=== PATIENT | female | born 2000 ===

== ENCOUNTER 2024-08-21 00:03 | Inpatient (IN) | payer BC ==
[2024-08-21] MEDS ORDERED: Sodium Chloride 0.9% 2.5 ML Syringe FLUSH PRN (00:21)
[2024-08-21] MEDS ORDERED: Misoprostol 200 MCG Tab PO PRN (00:21)
[2024-08-21] MEDS ORDERED: Methylergonovine 0.2 MG/1 ML Amp IM PRN (00:21)
[2024-08-21] MEDS ORDERED: Lidocaine 1% 50 ML MDV INJECT PRN (00:21)
[2024-08-21] MEDS ORDERED: Ondansetron 4 MG/2 ML SDV IVPUSH PRN (00:21)
[2024-08-21] MEDS ORDERED: Carboprost Tromethamine 250 MCG/1 mL Vial IM PRN (00:21)
[2024-08-21] MEDS ORDERED: Terbutaline 1 MG/ML SDV SUBCUT PRN (00:21)
[2024-08-21] MEDS ORDERED: Water For Irrigation,Sterile 1,000 ML Container IRR PRN (00:21)
[2024-08-21] MEDS ORDERED: Sodium Chloride 0.9% 20 ML SDV IV PRN (00:21)
[2024-08-21] MEDS ORDERED: Sodium Chloride 0.9% 10 ML Syringe FLUSH PRN (00:21)
[2024-08-21] MEDS ORDERED: Oxytocin/0.9 % Sodium Chloride 30 UNIT/500 ML BAG IV SCH (00:30)
[2024-08-21 00:41] LABS: HEMATOCRIT 38.4 % (37.0-47.0); HEMOGLOBIN 12.7 g/dL (12.0-16.0); MEAN CORPUSCULAR HEMOGLOBIN 24.7 pg (28.0-32.0); MEAN CORPUSCULAR HGB CONC 33.1 g/dL (32.0-36.0); MEAN CORPUSCULAR VOLUME 74.7 fL (83.0-99.0); MEAN PLATELET VOLUME 9.6 fL (9.4-12.3); PLATELET COUNT,PLT 234 K/uL (150-400); RED BLOOD CELL COUNT 5.14 M/uL (4.10-5.30); WHITE BLOOD CELL COUNT,WBC 11.48 K/uL (3.9-11.3)
[2024-08-21] MEDS: Misoprostol 25 MCG (1/4 of 100 MCG) Tab VAG PRN (01:24)
[2024-08-21] MEDS: Misoprostol 25 MCG (1/4 of 100 MCG) Tab VAG SCH (11:30)
[2024-08-21] MEDS ORDERED: Misoprostol 25 MCG (1/4 of 100 MCG) Tab VAG PRN (15:25)
[2024-08-21] MEDS: Lactated Ringers 1,000 ML IV SCH (15:30)
[2024-08-21] MEDS: Oxytocin/0.9 % Sodium Chloride 30 UNIT/500 ML BAG IV SCH (15:35)
[2024-08-21] MEDS: Butorphanol 2 MG/ML SDV IVPUSH PRN (17:16)
[2024-08-21] MEDS ORDERED: Phenylephrine HCl In 0.9% NaCl 1 MG/10 ML Syringe ONE (20:50)
[2024-08-21] MEDS ORDERED: Ropivacaine HCl/PF 200 ML ONE (20:50)
[2024-08-21] MEDS ORDERED: Bupivacaine 0.5% 10 ML SDV ONE (20:50)
[2024-08-21] MEDS: Ropivacaine HCl/PF 400 MG in Premix Bag 1 BAG EPIDUR SCH (21:07)
[2024-08-21] MEDS ORDERED: Phenylephrine HCl In 0.9% NaCl 1 MG/10 ML Syringe IVPUSH PRN (21:15)
[2024-08-21] MEDS ORDERED: dexmedeTOMIDine HCl 200 MCG/2 ML SDV EPIDUR SCH (21:15)
[2024-08-21] MEDS ORDERED: ePHEDrine 50 MG/ML SDV IM PRN (21:15)
[2024-08-21] MEDS ORDERED: ePHEDrine 50 MG/ML SDV IVPUSH PRN (21:15)
[2024-08-21] MEDS ORDERED: Bupivacaine 0.5% 10 ML SDV INJECT ONE (21:15)
[2024-08-22] MEDS ORDERED: oxyCODONE 5 MG Tab PO PRN (03:27)
[2024-08-22] MEDS ORDERED: Sodium Chloride 0.9% 1,000 ML IV SCH (03:30)
[2024-08-22 04:03] LABS: PH,UMBILICAL ARTERIAL 7.237 (7.18-7.38); PH,UMBILICAL VENOUS 7.241 (7.25-7.45)
[2024-08-22] MEDS: Benzocaine/Menthol 20%-0.5% Spray 78 GM Cannister TOP PRN (08:51)
[2024-08-22] MEDS: Lanolin 100% Cream 7 GM Tube TOP PRN (08:51)
[2024-08-22] MEDS: Witch Hazel Medicated Pads 40/Jar TOP PRN (08:52)
[2024-08-22] MEDS: Ibuprofen 800 MG Tab PO PRN (13:44)
[2024-08-22 15:10] LABS: HEMATOCRIT 35.3 % (37.0-47.0); HEMOGLOBIN 11.9 g/dL (12.0-16.0)
[2024-08-22] MEDS: Docusate Sodium 100 MG Cap PO PRN (21:17)
[2024-08-23] MEDS: Acetaminophen 500 MG Tab PO PRN (08:09)
== END 2024-08-24 22:30 | disposition home or self-care (01) | DRG 560 ==
LOC: MW.OB 00:03 → OBSVTOIN 08-22 03:09 → MW.OB 08-22 06:00
PROVIDERS: ADMIT Obstetrics & Gynecology; ATTEND Obstetrics & Gynecology
PROC: 10E0XZZ Delivery of Products of Conception, External Approach (ICD-10-PCS; principal; 2024-08-22)
PROC: 3E0P7VZ Introduction of Hormone into Female Reproductive, Via Natural or Artificial Opening (ICD-10-PCS; 2024-08-22)
PROC: 3E033VJ Introduction of Other Hormone into Peripheral Vein, Percutaneous Approach (ICD-10-PCS; 2024-08-22)
PROC: 3E0R3BZ Introduction of Anesthetic Agent into Spinal Canal, Percutaneous Approach (ICD-10-PCS; 2024-08-22)
PROC: 00HU33Z Insertion of Infusion Device into Spinal Canal, Percutaneous Approach (ICD-10-PCS; 2024-08-22)
DX: O36.5930 Maternal care for other known or suspected poor fetal growth, third trimester, not applicable or unspecified (principal); Z37.0 Single live birth; O99.214 Obesity complicating childbirth; E66.01 Morbid (severe) obesity due to excess calories; O70.0 First degree perineal laceration during delivery; Z3A.37 37 weeks gestation of pregnancy; Z90.49 Acquired absence of other specified parts of digestive tract; Z98.890 Other specified postprocedural states
CPT/HCPCS: 01967; 36415; 51702; 59025; 59409; 82803; 84112; 85014; 85018; 85027; 85460; 86592; 86850; 86900; 86901; A9270-GY; J0595; J0665; J2371; J2590; J2791; J2795; J7120